=== PATIENT | male | born 1950 | race Caucasian/White ===

== ENCOUNTER 2018-02-15 21:56 | Observation (INO) ==
--- NOTE | 2018-02-15 22:06 | Emergency Department Note ---
Disposition Clinical Impression: Chest pain Qualifiers: Chest pain type: unspecified Qualified Code(s): R07.9 - Chest pain, unspecified Headache Qualifiers: Headache type: unspecified Headache chronicity pattern: acute headache Intractability: not intractable Qualified Code(s): R51 - Headache Disposition: Admitted As Inpatient Condition: Fair Time of Disposition: 00:00 General Adult HPI - General Stated complaint: chest pain, left side neck and shoulder pain jessica Time Seen by Provider: 02/15/18 22:04 Source: EMS Mode of arrival: EMS Limitations: no limitations Nursing Notes Reviewed: Yes Vital Signs Reviewed: Yes - History of Present Illness HPI Narrative: Patient is a 67-year-old male who presents to [facility] ED with a chief complaint of exertional chest pain and shortness of breath. States it has worsened over the last 4-5 days. States he also started having a pain that radiated up from his left neck into his head. States he does not normally get headaches. Denies any nausea, vomiting, fever or chills. Denies any abdominal pain, problems with urination or bowel movements. Past medical history significant for CAD with multiple stents. Patient last had a stress test at the [facility] back in October. States this feels similar to when he had his prior [place]. Onset (ago): day(s) (4) Location: head, neck, chest Pain Severity: moderate Quality: aching Consistency: intermittent Improves with: nothing Worsens with: nothing Associated symptoms: Reports: chest pain. Denies: fever/chills, headaches, nausea/vomiting, shortness of breath Treatments Prior to Arrival: none - Related Data Allergies Allergy/AdvReac Type Severity Reaction Status Date / Time No Known Allergies Allergy Verified 02/15/18 22:12 All systems ED: reviewed and negative except as stated. Past Medical History - Past Medical History Attestation: Yes The following information was validated with the patient. Source: patient Medical history: Reports: coronary artery disease Physical Exam - General Limitations: no limitations General appearance: alert - Head Head exam: atraumatic, normocephalic, normal inspection - Eye Eye exam: Present: EOMI - ENT ENT exam: normal exam, normal oropharynx, mucous membranes moist - Neck Neck exam: Present: normal inspection, full ROM, trachea midline - Chest Chest inspection: Present: normal inspection, symmetric chest wall rise - Respiratory Respiratory exam: Present: normal lung sounds bilaterally - Cardiovascular Cardiovascular exam: Present: regular rate, normal rhythm, normal heart sounds - Abdominal Exam Abdominal exam: Present: soft, Non-Tender. Absent: tenderness, distention, guarding, rebound, rigidity - Extremities Exam Extremities exam: Present: normal inspection, full ROM. Absent: tenderness, pedal edema - Back Exam Back exam: Present: normal inspection, full ROM. Absent: tenderness - Neurological Exam Neurological exam: Present: alert, oriented X3 - Psychiatric Psychiatric exam: Present: normal affect, normal mood - Skin Skin exam: Present: warm, dry, intact, normal color Course Course Narrative: Patient seen and examined. Exertional chest pain and dyspnea with a history of CAD. Cardiopulmonary workup initiated. Patient also having pain going from his neck into his head. is very concerned about this since he never has headaches. Decision was made to do a CTA of the head and neck to rule out dissection. He has had a history of CVAs as well. Patient is completely neurologically intact with an NIH of 0. I do not suspect a stroke at this time. - Reevaluation(s) Reevaluation #1: Lab work and imaging unremarkable. No signs of dissection on CTA. We will admit to hospitalist for chest pain, ACS workup. I discussed with the hospitalist Dr. Wetzel who has accepted patient for admission. We will give patient aspirin for chest pain, as well as Reglan and Benadryl to help with his headache. Time: 00:00 Vital Signs Temperature 97.8 F 02/15/18 22:03 Pulse Rate 64 02/15/18 22:03 Respiratory Rate 16 02/15/18 22:03 Blood Pressure 138/92 02/15/18 22:03 O2 Sat by Pulse Oximetry 95 02/15/18 22:03 Temperature 97.8 F 02/15/18 22:03 Pulse Rate 54 02/16/18 00:47 Respiratory Rate 18 02/16/18 00:47 Blood Pressure 126/80 02/16/18 00:47 O2 Sat by Pulse Oximetry 97 02/16/18 00:47 Oxygen Delivery Oxygen Delivery Room Air Medical Decision Making - Medical Records Medical records reviewed: Yes I reviewed the patient's medical records. - Lab Data Lab results reviewed: Yes I reviewed the patient's lab results. Result diagrams: 02/15/18 22:13 02/15/18 22:13 Lab Results 02/15/18 02/15/18 Range/Units 22:13 22:13 WBC 7.5 (4.3-11.1) K/mcL RBC 4.64 (4.19-5.50) M/mcL Hgb 14.5 (12.9-16.9) g/dL Hct 41.2 (37.5-50.1) % MCV 88.8 (83.0-100.0) fL MCH 31.3 (28.0-33.3) pg MCHC 35.2 (31.6-35.5) g/dL RDW 12.3 (11.5-14.5) % Plt Count 173 (140-400) K/mcL MPV 10.8 (9.4-12.4) fL Immature Gran % 0.4 (0-4) % Seg Neutrophils % 65.5 % Lymphocytes % 22.3 % Monocytes % 10.2 % Eosinophils % 1.3 % Basophils % 0.3 % Neutrophils # 4.9 (1.6-8.9) K/mcL Lymphocytes # 1.7 (0.6-4.6) K/mcL Monocytes # 0.8 (0.0-1.3) K/mcL Eosinophils # 0.1 (0.0-0.6) K/mcL Basophils # 0.0 (0.0-0.2) K/mcL Sodium 139 (136-145) mEq/L Potassium 3.8 (3.5-5.1) mEq/L Chloride 105 (98-107) mEq/L Carbon Dioxide 27 (23-29) mEq/L BUN 25 H (8-23) mg/dL Creatinine 1.02 (0.70-1.30) mg/dL Est GFR ( Amer) > 60 (> 60) Est GFR (Non-Af Amer) > 60 (> 60) BUN/Creatinine Ratio 25 (6-26) Glucose 161 H (70-105) mg/dL Calculated Osmolality 296 (280-300) Calcium 9.7 (8.6-10.3) mg/dL Troponin I < 0.03 (< 0.04) ng/mL - Radiology Data Radiology results reviewed: Yes I reviewed the patient's radiology results. Chest X-Ray 02/15/18 22:19 IMPRESSION: No acute process. D/ / Alan Patel MD / Alan Patel MD Interpreting Provider: Alan Patel MD Head CTA 02/15/18 22:22 IMPRESSION: No acute intracranial findings. Chronic small-vessel ischemic changes. No hemodynamically significant stenosis of either proximal internal carotid artery. Moderate stenosis right V4 segment vertebral artery. Mild stenosis of both cavernous segments internal carotid arteries. No high-grade intracranial stenosis. No dissection. D/ / Urban Espino MD / Urban Espino MD Interpreting Provider: Urban Espino MD Neck CTA 02/15/18 22:22 IMPRESSION: No acute intracranial findings. Chronic small-vessel ischemic changes. No hemodynamically significant stenosis of either proximal internal carotid artery. Moderate stenosis right V4 segment vertebral artery. Mild stenosis of both cavernous segments internal carotid arteries. No high-grade intracranial stenosis. No dissection. D/ / Urban Espino MD / Urban Espino MD Interpreting Provider: Urban Espino MD - EKG Data EKG #1 EKG attestation: Yes I reviewed and interpreted this EKG. EKG results narrative: EKG done at 2206 shows normal sinus rhythm with a rate of [address] elevation or depression. Normal axis. Attestation Statement - Attestation Attestation: I examined this patient and my medical decision-making was reviewed with the Resident Physician, Dr. Webber. I agree with the documented findings, disposition and treatment plan as described except to the extent set forth below. Patient is 67-year-old white male with a stable significant cardiac history including multiple stent placements in the past as well as 3 prior CVAs which she is completely recovered. Patient presents complaining of some exertional dyspnea and exertional chest discomfort that resolves with rest that he has been experiencing for the past week worse over the past 5 days. Patient states any ambulation causes a recurrence of symptoms. Patient denies any current chest pain at rest in the ED. Patient's also complaining of left-sided head and neck pain that he has been experiencing for the past few days denies any associated visual changes, no focal neurologic deficits, no slurred speech, no dizziness or vertigo, no history of falls or trauma. Patient has never experienced headaches like this in the past states that it will improve with Motrin but then recurs. was most concerned about the complaints of headaches. I agree with patient's physical exam findings as documented. Vital signs are stable patient's in no acute distress with no focal neurologic deficits. NIH score equals 0 on initial assessment. Patient's EKG showed a normal sinus rhythm without acute ischemia. There were no old EKGs for comparison in our system. Patient's last workup was done at the [facility] in October. Patient's lab evaluation including troponin was within normal limits chest x- rays unremarkable. CT of the head neck for further evaluation of headache and neck pain was unremarkable. Due to patient's exertional symptoms that are worsening as well as his headache findings we will admit him for further medical evaluation. Case was discussed with the hospitalist to accept the patient for further evaluation and management.
[2018-02-15] MEDS ORDERED: Isovue-370 500 ML INFUS..BTL IV ONE (22:22)
[2018-02-15 22:31] LABS: Basophils % 0.3 %; Eosinophils # 0.1 K/mcL (0.0-0.6); Eosinophils % 1.3 %; Hematocrit 41.2 % (37.5-50.1); Hemoglobin 14.5 g/dL (12.9-16.9); Immature Granulocytes % 0.4 % (0-4); Lymphocytes # 1.7 K/mcL (0.6-4.6); Lymphocytes % 22.3 %; Mean Corpuscular HGB Conc 35.2 g/dL (31.6-35.5); Mean Corpuscular Hemoglobin 31.3 pg (28.0-33.3); Mean Corpuscular Volume 88.8 fL (83.0-100.0); Mean Platelet Volume 10.8 fL (9.4-12.4); Monocytes # 0.8 K/mcL (0.0-1.3); Monocytes % 10.2 %; Neutrophils # 4.9 K/mcL (1.6-8.9); Platelet Count 173 K/mcL (140-400); Red Blood Count 4.64 M/mcL (4.19-5.50); Red Cell Distribution Width 12.3 % (11.5-14.5); Segmented Neutrophils % 65.5 %
[2018-02-15 22:52] LABS: BUN/Creatinine Ratio 25 (6-26); Blood Urea Nitrogen 25 mg/dL (8-23); Calcium 9.7 mg/dL (8.6-10.3); Carbon Dioxide 27 mEq/L (23-29); Chloride 105 mEq/L (98-107); Glucose 161 mg/dL (70-105); Osmolality,Calculated 296 (280-300); Potassium 3.8 mEq/L (3.5-5.1); Sodium 139 mEq/L (136-145); Troponin I < 0.03 ng/mL (< 0.04); eGFR For Non-African Americans > 60 (> 60)
[2018-02-16] MEDS ORDERED: Aspirin 325 MG TABLET PO ONE (01:06)
[2018-02-16] MEDS ORDERED: Metoclopramide 10 MG/2 ML VIAL IVP ONE (01:06)
[2018-02-16] MEDS ORDERED: Naloxone 0.4 MG/ML INJ IVP PRN (02:42)
[2018-02-16] MEDS ORDERED: Nitroglycerin 0.4 MG TAB.SUBL SL PRN (02:43)
--- NOTE | 2018-02-16 02:45 | Internal Med History&Physical ---
Date of Encounter: 02/16/18 Time of Encounter: 02:44 Internal Medicine - H&P: HPI Chief complaint: chest pain Admitted From: Emergency Dept Plans for Post Hospital Care: Home History of present illness: Mr. Gardner is a 67 year old male with past medical history of diabetes, CAD, CVA presents to emergency department with a complaint of chest pain. He states the pain began yesterday while he was walking up an incline. Pain has been intermittent and always occurs with exertion. He denies any history of chest pain at rest. He has experienced this before multiple times and has been worked up at the [facility] for chest pain. He denies any history of stents but has had a left heart catheterization many years ago. He also had a workup at the [facility] in October including stress test which he reports as normal. He states he does experience some shortness of breath during these episodes and with exertion but denies any complaints of nausea, diaphoresis. Denies any recent illness including fevers, chills, cough. He does state that one new issue is that his chest pain did radiate to his left neck and left shoulder. In the emergency department, vital signs were unremarkable except for mild bradycardia at 54. Laboratory results grossly unremarkable as well including a negative troponin. EKG showed sinus rhythm with no appreciable ST changes. A head and neck CTA was performed to rule out dissection given his new neck pain and was negative for acute study. He was given 324 mg of aspirin and admitted for chest pain rule out. Past medical history as above Past surgical history noncontributory Social history: Denies ever smoking, denies drug use, denies alcohol use Family history: Patient admits to coronary artery disease with [place] in his father in mid 50s. Past Med Surg Social Fam HX - Past Medical History Medical history: coronary artery disease Additional medical history: 2 CVA, 4 stents - Past Surgical History Additional surgical history: 2 rotor cuff surgeries - Social History Smoking Status: Never smoker Alcohol use: none Drug use: none - Family History Father Hx Family Cardiac Disorders: Yes Hx Family Cancer: Yes (lung) Hx Family Endocrine Disorder: Yes (DM) Mother Hx Family Cancer: Yes (lung) Internal Medicine - H&P: Meds Atorvastatin [Lipitor] 40 mg PO HS 02/16/18 [History] Clopidogrel Bisulfate [Plavix] 75 tab PO DAILY 02/16/18 [History] Finasteride [Proscar] 5 mg PO DAILY 02/16/18 [History] Insulin Glargine [Lantus] 25 unit SQ DAILY 02/16/18 [History] Latanoprost [Xalatan] 1 drop LEFT EYE HS 02/16/18 [History] Lisinopril-HCTZ 10-12.5 [Prinzide 10-12.5] 1 each PO DAILY 02/16/18 [History] Tamsulosin HCl [Flomax] 0.4 mg PO HS 02/16/18 [History] Timolol Maleate 0.5% [Timolol Maleate 0.5%] 1 drop LEFT EYE DAILY 02/16/18 [ History] glipiZIDE [Glipizide] 10 mg PO BID 02/16/18 [History] 3 Allergy/AdvReac Type Severity Reaction Status Date / Time No Known Allergies Allergy Verified 02/15/18 22:12 All Systems PM: A 10-system review of systems was performed and is negative for pertinent findings except as documented above in the HPI. - Constitutional Constitutional: no chills, no fatigue, no fever(s), no lethargy - Cardiovascular Cardiovascular ROS IM: chest pain, dyspnea on exertion, no claudication, no diaphoresis, no edema, no irregular heart rhythm, no orthopnea, no palpitations , no syncope - Respiratory Respiratory: dyspnea on exertion, no cough, no dyspnea, no pain on inspiration, no pain with cough - Gastrointestinal Gastrointestinal: no abdominal pain, no constipation, no hematemesis, no loose stools, no melena, no nausea, no vomiting - Integumentary Integumentary IM: no rash - Neurological Neurological ROS: no dizziness, no numbness, no tingling - Constitutional Vitals: Temp Pulse Resp BP Pulse Ox 97.7 F 59 18 120/71 97 02/16/18 01:47 02/16/18 01:47 02/16/18 01:47 02/16/18 01:47 02/16/18 01:47 Exam: Gen.: Vitals noted. No acute distress. AAOx3 HEENT: PERRL/EOMI, oropharynx clear, Normocephalic, atraumatic, MMM Cardiac: RRR, no murmur, +S1/S2. No reproducible chest tenderness Pulmonary: CTA bilaterally, no wheezes, rales or rhonchi, equal chest expansion Abdomen: soft, nontender, BS noted, no guarding, no rebound. Extremities: no BLE edema, nontender calf, no cyanosis or clubbing Neuro: A&Ox3, moves all extremities, no focal deficits Psych: Appropriate mood and behavior Internal Med - H&P Results - Labs CBC & Chem 7: 02/15/18 22:13 02/15/18 22:13 - Assessment and plan (1) Chest pain Current Visit: Yes Status: Suspected Assessment and plan: - Suspect stable angina given HPI - Previous workup in October at [facility] including stress test. LHC has been a couple years - Pain is resolved at this time. Received ASA in ED - Headache resolved. - Troponin negative x1, will trend - EKG shows no ischemic changes - Continue home ASA, plavix. - Heart score 5, IRENE 4 Plan - Consider long acting nitrate vs cardiac consult for [facility] - Will keep NPO at midnight - NTG SL PRN - Also consider BB however patient does run mildly bradycardic Qualifiers: Chest pain type: chest pain due to myocardial ischemia Ischemic chest pain type: stable angina pectoris Qualified Code(s): I20.8 - Other forms of angina pectoris (2) CAD (coronary artery disease) Current Visit: Yes Status: Chronic Assessment and plan: as above for chest pain. follows at [facility] Qualifiers: Coronary Disease-Associated Artery/Lesion type: [place] artery [place] vs. transplanted heart: [place] heart Associated angina: with stable angina Qualified Code(s): I25.118 - Atherosclerotic heart disease of [place] coronary artery with other forms of angina pectoris (3) Diabetes mellitus Current Visit: Yes Status: Acute Assessment and plan: - Bs of 161 on presentation - Not insulin dependent - SSI, a1c with morning labs Qualifiers: Diabetes mellitus type: type 2 Diabetes mellitus assisted insulin use: without moth exterminator use Diabetes mellitus complication status: without complication Qualified Code(s): E11.9 - Type 2 diabetes mellitus without complications (4) Headache Current Visit: Yes Status: Resolved Assessment and plan: resolved, possibly tension related - Received reglan, benadryl, asa before leaving ED - Caution with NTG in future. Qualifiers: Headache type: unspecified Headache chronicity pattern: acute headache Intractability: not intractable Qualified Code(s): R51 - Headache (5) DVT prophylaxis Current Visit: Yes Status: Acute Assessment and plan: heparin 5000 units q12 hours - Time Spent With Patient Total time spent is greater than 50% in coordination of care (as documented) at patient's floor/unit and/or counseling patient:
[2018-02-16] MEDS ORDERED: *HR* Dextrose 50 % in Water (Syg) 50 ML SYRINGE IVP PRN (02:46)
[2018-02-16] MEDS ORDERED: D5% in Water 1,000 ML IVC PRN (02:46)
[2018-02-16] MEDS ORDERED: Dextrose Gel 15 GM/37.5 ML TUBE PO PRN ×2 (02:46)
[2018-02-16] MEDS ORDERED: *HR* Heparin 5,000 UNIT/ML VIAL SQ SCH (06:00)
[2018-02-16] MEDS: Insulin LISPRO 300 UNITS/3 ML VIAL SQ SCH ×3 (08:37→18:08)
[2018-02-16] MEDS: Finasteride 5 MG TABLET PO SCH (08:39)
[2018-02-16] MEDS ORDERED: *HR* Heparin 5,000 UNIT/ML VIAL IVP ONE (10:21)
[2018-02-16] MEDS ORDERED: *HR* Heparin 5,000 UNIT/ML VIAL IVP PRN ×2 (10:21)
--- NOTE | 2018-02-16 10:28 | Internal Med Progress Note ---
Hospitalist Progress Note - Encounter Date of Encounter: 02/16/18 Time of Encounter: 10:25 - Subjective Interval History: Patient was seen and examined earlier this am by hospitalist He has been NPO overnight, no CP voiced at this time. Troponin have been negative. He has h of 4 stents in past last cardiac cath several years ago, stress test completed at [facility] in October which was negative. I did consult cardiology and spoke with Dr Alatorre who advised to start heparin gtt and patient will undergo a cardiac cath this afternoon. Updated patient and who verbalized understanding. - Exam Vitals: Temp Pulse Resp BP Pulse Ox 98.2 F 66 18 109/66 98 02/16/18 07:48 02/16/18 07:48 02/16/18 07:48 02/16/18 07:48 02/16/18 08:47 - Assessment and Plan (1) Chest pain Current Visit: Yes Status: Suspected (2) Headache Current Visit: Yes Status: Resolved (3) DVT prophylaxis Current Visit: Yes Status: Acute (4) CAD (coronary artery disease) Current Visit: Yes Status: Chronic (5) Diabetes mellitus Current Visit: Yes Status: Acute - Time Spent with Patient Total time spent is greater than 50% in coordination of care (as documented) at patient's floor/unit and/or counseling patient: Internal Medicine: Result - Labs CBC & Chem 7: 02/15/18 22:13 02/15/18 22:13 Labs: Cardiac Enzymes 02/16/18 Range/Units 08:45 Troponin I < 0.03 (< 0.04) ng/mL Consult Discharge Plan - Plan (1) Chest pain Qualifiers: Chest pain type: chest pain due to myocardial ischemia Ischemic chest pain type: stable angina pectoris Qualified Code(s): I20.8 - Other forms of angina pectoris (2) Headache Qualifiers: Headache type: unspecified Headache chronicity pattern: acute headache Intractability: not intractable Qualified Code(s): R51 - Headache (4) CAD (coronary artery disease) Qualifiers: Coronary Disease-Associated Artery/Lesion type: [place] artery [place] vs. transplanted heart: [place] heart Associated angina: with stable angina Qualified Code(s): I25.118 - Atherosclerotic heart disease of [place] coronary artery with other forms of angina pectoris (5) Diabetes mellitus Qualifiers: Diabetes mellitus type: type 2 Diabetes mellitus mcc insulin use: without oysterman use Diabetes mellitus complication status: without complication Qualified Code(s): E11.9 - Type 2 diabetes mellitus without complications
[2018-02-16] MEDS ORDERED: Heparin 25,000 UNIT/500 ML D5W 25,000 UNIT/500 ML BAG IVC SCH (10:30)
--- NOTE | 2018-02-16 10:36 | Event Note ---
Date of Encounter: 02/16/18 Time of Encounter: 10:30 Patient was seen and examined earlier this am by hospitalist He has been NPO overnight, no CP voiced at this time. Troponin have been negative. He has h of 4 stents in past last cardiac cath several years ago, stress test completed at [facility] in October which was negative. I did consult cardiology and spoke with Dr Alatorre who advised to start heparin gtt and patient will undergo a cardiac cath this afternoon. Updated patient and who verbalized understanding.
[2018-02-16 10:53] LABS: Hematocrit 44.3 % (37.5-50.1); Hemoglobin 15.3 g/dL (12.9-16.9); Heparin anti-factor XA UFH 0.01 IU/mL (0.30-0.70); Mean Corpuscular HGB Conc 34.5 g/dL (31.6-35.5); Mean Corpuscular Hemoglobin 30.7 pg (28.0-33.3); Mean Corpuscular Volume 88.8 fL (83.0-100.0); Mean Platelet Volume 10.6 fL (9.4-12.4); Platelet Count 176 K/mcL (140-400); Red Blood Count 4.99 M/mcL (4.19-5.50); Red Cell Distribution Width 12.4 % (11.5-14.5)
--- NOTE | 2018-02-16 11:06 | Cardiology Consult Note ---
<Asher Ardon R - Last Filed: 02/16/18 11:11> Date of Encounter: 02/16/18 Time of Encounter: 11:03 Assessment and Plan (1) Angina of effort Status: Acute Presents with exertional chest pain over the past week, midsternal with radiation to left shoulder/neck associated with dyspnea. Relieved with rest. Similar to his prior anginal equivalent--CAD s/p 4 stents, most recent PCI 2009 per pt. Reports negative stress test at [place] in October. Troponins negative. EKG no acute changes. Given his anginal symptoms and recent negative stress test, recommend LHC. R/B/ A discussed. Pt agrees to proceed. LHC today. Dr. Alatorre recommended starting heparin gtt. Continue Plavix, Statin. Start ASA. Resume home BB. TTE to evaluate structure and function. Continue to follow. (2) CAD (coronary artery disease) Status: Chronic As above, hx PCI most recent 2009. ASA, Plavix, Statin, BB. LHC today for anginal symptoms. Qualifiers: Coronary Disease-Associated Artery/Lesion type: [place] artery [place] vs. transplanted heart: [place] heart Associated angina: with stable angina Qualified Code(s): I25.118 - Atherosclerotic heart disease of [place] coronary artery with other forms of angina pectoris Discussion w patient/family: The assessment and plan as outlined above was discussed with the patient and/or family members who expressed understanding and agreement. All questions were answered. Thank you for involving us in the care of your patient. Please call with any questions. I will discuss all the above with Dr. Alatorre and make changes as necessary. History of Present Illness Consult date: 02/16/18 Requesting physician: Afshan Silva Consult reason: angina Chief complaint: chest pain History of present illness: Mr. Gardner is a 67 year old male with PMH of diabetes, CAD s/p PCI, CVA presents to ED with complaint of chest pain intermittently for the past week when trying to walk up an incline. CP worsens on exertion, relief with rest. Associated dyspnea and radiation to left shoulder/neck. He has not utilized nitro. Most recent LHC with PCI was in 2009. He states he has a total of 4 stents and current symptoms are similar to his prior anginal equivalent. Reports negative stress test at [place] in October. Troponin negative. Cardiology consulted for further recs. Past Med Surg Social Fam HX - Past Medical History Medical history: coronary artery disease, CVA, diabetes Additional medical history: 2 CVA, 4 stents - Past Surgical History Surgical History: angioplasty/stent Additional surgical history: 2 rotor cuff surgeries - Social History Smoking Status: Never smoker Alcohol use: none Drug use: none - Family History Father Hx Family Cardiac Disorders: Yes Hx Family Cancer: Yes (lung) Hx Family Endocrine Disorder: Yes (DM) Mother Hx Family Cancer: Yes (lung) Medications and Allergies Atorvastatin [Lipitor] 40 mg PO HS 02/16/18 [History] Carvedilol 3.125 mg PO BID 02/16/18 [History] Cetirizine HCl [Zyrtec] 10 mg PO DAILY 02/16/18 [History] Clopidogrel Bisulfate [Plavix] 75 tab PO DAILY 02/16/18 [History] Diclofenac Sodium [Voltaren] 2 gm TP TID PRN 02/16/18 [History] Finasteride [Proscar] 5 mg PO DAILY 02/16/18 [History] Insulin Glargine [Lantus] 25 unit SQ DAILY 02/16/18 [History] Latanoprost [Xalatan] 1 drop LEFT EYE HS 02/16/18 [History] Lisinopril-HCTZ 10-12.5 [Prinzide 10-12.5] 1 each PO DAILY 02/16/18 [History] Pantoprazole Sodium [Protonix] 40 mg PO DAILY 02/16/18 [History] Tamsulosin HCl [Flomax] 0.4 mg PO HS 02/16/18 [History] Timolol Maleate 0.5% 1 drop LEFT EYE DAILY 02/16/18 [History] Zolpidem [Ambien] 10 mg PO HS 02/16/18 [History] glipiZIDE [Glipizide] 10 mg PO BID 02/16/18 [History] Aspirin 81 mg PO DAILY #30 tab.chew 02/17/18 [Rx] Nitroglycerin 0.4 mg SL Q5MIN PRN #30 tab.subl 02/17/18 [Rx] 3 Allergy/AdvReac Type Severity Reaction Status Date / Time carvedilol AdvReac Fatigued Verified 02/16/18 17:50 All Systems Review: The remainder of the systems were reviewed and are negative - Cardiovascular Cardiovascular: as per HPI, chest pain with exertion, dyspnea on exertion, radiating jaw, neck or arm pain - Respiratory Respiratory: dyspnea Physical Examination Vital Signs, Last 4 Hours Temp Pulse Resp BP Pulse Ox 02/16/18 08:47 98 02/16/18 07:48 98.2 F 66 18 109/66 98 Vital Signs Temp Pulse Resp BP Pulse Ox 02/16/18 08:47 98 02/16/18 07:48 98.2 F 66 18 109/66 98 02/16/18 01:47 97.7 F 59 18 120/71 97 02/16/18 00:47 54 18 126/80 97 02/15/18 23:12 56 14 131/85 97 02/15/18 22:03 97.8 F 64 16 138/92 95 Intake and Output 02/15/18 02/16/18 02/16/18 23:59 07:59 15:59 Other: Meal NPO Weight 80.739 kg 85.2 kg Blood Glucose* 86 Patient Weight 02/16/18 23:59 Weight 85.2 kg General: Conversant, No Apparent Distress HEENT: Atraumatic, Normocephaly, Mucus Membranes Moist Neck: No JVD, Normal carotid pulses Cardiac: Reg Rate and Rhythm, Normal S1 and S2, No Murmur Lungs: Normal Breath Sounds, No Wheeze, Rales, Rhonchi Neuro: Alert and responsive, No focal deficits noted Abdomen: Soft, Non-Tender Skin: No rashes noted on visualized skin Musculoskeletal: No Chest Wall Tenderness Extremities: No Clubbing, No Cyanosis, No Edema, Normal Pulses Results 02/16/18 10:31 02/15/18 22:13 Lab Results 02/16/18 02/16/18 02/16/18 08:45 10:31 10:31 WBC 7.9 Hgb 15.3 Hct 44.3 Plt Count 176 INR 1.0 Troponin I < 0.03 Short CBC 02/16/18 02/15/18 Range/Units 10:31 22:13 WBC 7.9 7.5 (4.3-11.1) K/mcL Hgb 15.3 14.5 (12.9-16.9) g/dL Hct 44.3 41.2 (37.5-50.1) % Plt Count 176 173 (140-400) K/mcL Neutrophils # 4.9 (1.6-8.9) K/mcL BMP 02/15/18 Range/Units 22:13 Sodium 139 (136-145) mEq/L Potassium 3.8 (3.5-5.1) mEq/L Chloride 105 (98-107) mEq/L Carbon Dioxide 27 (23-29) mEq/L BUN 25 H (8-23) mg/dL Creatinine 1.02 (0.70-1.30) mg/dL Glucose 161 H (70-105) mg/dL Calcium 9.7 (8.6-10.3) mg/dL Cardiac Enzymes 02/16/18 02/15/18 Range/Units 08:45 22:13 Troponin I < 0.03 < 0.03 (< 0.04) ng/mL Impressions Chest X-Ray 02/15/18 22:19 IMPRESSION: No acute process. D/ / Alan Patel MD / Alan Patel MD Interpreting Provider: Alan Patel MD Head CTA 02/15/18 22:22 IMPRESSION: No acute intracranial findings. Chronic small-vessel ischemic changes. No hemodynamically significant stenosis of either proximal internal carotid artery. Moderate stenosis right V4 segment vertebral artery. Mild stenosis of both cavernous segments internal carotid arteries. No high-grade intracranial stenosis. No dissection. D/ / Urban Espino MD / Urban Espino MD Interpreting Provider: Urban Espino MD Neck CTA 02/15/18 22:22 IMPRESSION: No acute intracranial findings. Chronic small-vessel ischemic changes. No hemodynamically significant stenosis of either proximal internal carotid artery. Moderate stenosis right V4 segment vertebral artery. Mild stenosis of both cavernous segments internal carotid arteries. No high-grade intracranial stenosis. No dissection. D/ / Urban Espino MD / Urban Espino MD Interpreting Provider: Urban Espino MD Active Medications Acetaminophen (Tylenol) 650 mg PO Q6HR PRN PRN Reason: Mild Pain/Fever Stop: 08/18/18 02:43 Atorvastatin Calcium (Lipitor) 40 mg PO HS SID Stop: 08/18/18 21:01 Clopidogrel Bisulfate (Plavix) 75 mg PO DAILY SID Stop: 08/18/18 09:01 Last Admin: 02/16/18 08:39 Dose: 75 mg Dextrose/Water (Dextrose 50% (Syg)) 25 ml IVP AD PRN PRN Reason: Hypoglycemia Stop: 08/18/18 02:47 Finasteride (Proscar) 5 mg PO DAILY SID PRN Reason: Protocol Stop: 08/18/18 09:01 Last Admin: 02/16/18 08:39 Dose: 5 mg Glucagon (Glucagen) 1 mg IM ONCE PRN PRN Reason: Hypoglycemia Stop: 08/18/18 02:47 Glucose (Gluctose) 15 gm PO ONCE PRN PRN Reason: Hypoglycemia Stop: 08/18/18 02:47 Glucose (Gluctose) 30 gm PO ONCE PRN PRN Reason: Hypoglycemia Stop: 08/18/18 02:47 Lisinopril/HCTZ (Prinzide 10-12.5) 1 each PO DAILY [facility] Stop: 08/18/18 09:01 Last Admin: 02/16/18 08:39 Dose: 1 each Heparin Sodium (Porcine) (Heparin) 4,000 unit IVP Q6HR PRN PRN Reason: SEE COMMENTS Stop: 08/18/18 10:22 Heparin Sodium (Porcine) (Heparin) 2,000 unit IVP Q6H PRN PRN Reason: SEE COMMENTS Stop: 08/18/18 10:22 Dextrose (Dextrose 5%) 1,000 mls @ 100 mls/hr IVC .Q10H PRN PRN Reason: HYPOGLYCEMIA Stop: 08/18/18 02:47 Heparin Sodium/Dextrose (Heparin 25,000 Unit/500 Ml D5w) 25,000 unit in 500 mls @ 20 mls/hr IVC .Q24H SID PRN Reason: Protocol Stop: 08/18/18 10:31 Insulin Human Lispro (Humalog) 0 units SQ TIDAC SID PRN Reason: Protocol Stop: 08/18/18 07:31 Last Admin: 02/16/18 08:37 Dose: Not Given Latanoprost (Xalatan) 1 drop LEFT EYE HS SID PRN Reason: Protocol Stop: 08/18/18 21:01 Naloxone HCl (Narcan) 0.4 mg IVP Q2MIN PRN PRN Reason: SEE COMMENTS Stop: 08/18/18 02:43 Nitroglycerin (Nitroglycerin) 0.4 mg SL Q5MIN PRN PRN Reason: Chest Pain Stop: 08/18/18 02:44 Tamsulosin HCl (Flomax) 0.4 mg PO HS SID PRN Reason: Protocol Stop: 08/18/18 21:01 Timolol Maleate (Timolol Maleate 0.5%) 1 drop LEFT EYE DAILY SID PRN Reason: Protocol Stop: 08/18/18 09:01 - EKG Interpretation EKG results cardiology: personally reviewed Consult Discharge Plan - Plan Instructions: Nitroglycerin (By mouth), Aspirin (By mouth), Chest Pain (DC), Diabetes Mellitus Type 2 in Adults (DC) Additional Instructions: RISK FACTORS: STOP SMOKING: If you smoke, STOP. Smoking or tobacco use significantly increases your risk of heart disease because nicotine causes the arteries to narrow or constrict. It also causes fats to stick to the artery. Your chances of having a heart attack are greatly increased if you continue to smoke. For more information, call the education line for smoking cessation 4-725-[id number] EAT A LOW FAT/CHOLESTEROL/SODIUM DIET: This diet may help reduce your chances of having a heart attack. LIFTING: With affected extremity: Avoid bending, pushing off and lifting more than 2 pounds for 24 hours The following 48 hours, avoid lifting anything more than 5 pounds Avoid strenuous activity or repetitive motions ACTIVITY: You may walk or climb stairs as tolerated You can resume sexual activity as tolerated In general, you are encouraged to engage in a minimum of 30 minutes or more of moderate intensity physical activity, such as brisk walking, daily or at least 3 -4 times weekly BATHING Do not submerge the site into water (bath tub, hot tub, swimming pool, dishes) for 1 week. This can be a source for infection into the blood stream. You may shower after 24 hours SITE CARE: After 24 hours, you may remove the dressing and leave the site open to air. Keep the site clean and dry. Clean gently and pat dry. You can expect bruising and tenderness that gradually resolve within a week or two. Return to work as instructed per your physician Resume driving as instructed per physician Keep all scheduled follow up appointments Resume medications as instructed IMPORTANT: If prescribed a Platelet Aggregation Inhibitor such as, Plavix, Brilinta or Effient: Duration of therapy is minimum one year These medications are often used in combination with Aspirin in prevention of future heart attacks Never discontinue unless consult with your [employer] STROKE (CVA) Risk factors for a stroke are: Age, cigarette smoking, diabetes, excessive alcohol consumption, family history, high blood pressure, overweight, physical inactivity, prior stroke, heart attack, diagnosis of carotid artery stenosis or other artery disease. Warning signs: Sudden numbness or weakness of the face, arm or leg; especially on one side of the body, sudden confusion, trouble speaking or understanding, sudden trouble seeing in one or both eyes, sudden trouble walking, dizziness, loss of balance or coordination, sudden severe headache with no cause. Call 911 or go to the Emergency Room. CONGESTIVE HEART FAILURE: If you have been diagnosed with Congestive Heart Failure (CHF) and your symptoms return, make an appointment with your physician Weigh yourself daily. Notify your physician if you have a weight gain of two or more pounds in one day or five or more pounds in one week. If you experience any difficulty breathing, please call 911 BLEEDING: Although the risk of bleeding is minimal, it can happen. If you have any bleeding from the site, apply firm pressure above the puncture site for 10-15 minutes. If the bleeding does not stop, continue manual pressure and call 911 Contact [facility] ( ) if: You develop a fever greater than 101 degrees Fahrenheit Your site becomes reddened or has any drainage You have an increase in pain or burning at the site or if a large knot forms at the site. If you experience chest pain, shortness of breath, dizziness, or extreme tiredness, stop the activity and rest. Please notify [facility] office if you experience any of these symptoms and they are not relieved by rest please call 911! Referrals: Checo Martinez MD [Partnered Physician] - [place],PCP [Primary Care Provider] - 03/04/18 9:45 am Prescriptions: Nitroglycerin 0.4 mg SL Q5MIN PRN #30 tab.subl PRN Reason: Chest Pain Aspirin 81 mg PO DAILY #30 tab.chew <Colin Alatorre - Last Filed: 02/17/18 14:25> Date of Encounter: 02/16/18 - Attending Attestation I have personally performed a face to face evaluation on this patient. I have reviewed and agree with the care plan. History and Exam by me shows: CC: Chest pain PT presents to the ER with complaints of sudden onset mid sternal chest pain, severe 8/10, provoked by increased exercise and walking up an incline. Pain lasts three to five minutes after stops to rest. He reports chest pain is associated with nausea, diaphoresis and shortness of breath, and is similar to chest pain experienced prior to previous PCI in 2009. He has been having symptoms on and off for several weeks. Chest pain at presentation most severe he has experienced, and lasted the longest. PMH: reviewed ROS: reviewed PE: pt seen and examined, agree with findings as documented. IMP:Plan: 1. Unstable angina, discussed options, recommendation for LHC possible later today, risk and benefits discussed, elects to proceed with diagnostic LHC. 2. CAD: Severe single vessel CAD POst PCI with SHELLIE unknown vessel in 2009, old records requested. 3. IDDM: reports fasting blood sugars are well controlled on current meds. 4. Hypertension: adequate control on current meds. Assessment and Plan Discussion w patient/family: The assessment and plan as outlined above was discussed with the patient and/or family members who expressed understanding and agreement. All questions were answered. Thank you for involving us in the care of your patient. Please call with any questions. History of Present Illness History of present illness: Mr. Gardner is a 67 year old male All Systems Review: The remainder of the systems were reviewed and are negative Physical Examination Vital Signs, Last 4 Hours Temp Pulse Resp BP Pulse Ox 02/17/18 11:23 97.7 F 97 18 131/73 97 Results 02/16/18 10:31 02/15/18 22:13
[2018-02-16] MEDS: Aspirin 81 MG TAB.CHEW PO SCH (11:48)
--- NOTE | 2018-02-16 13:28 | Pre-Sedation Evaluation ---
Pre-sedation evaluation - Pre-sedation checklist Date of procedure: 02/16/18 Procedure: [facility] Recent Vitals: Last Vital Signs Temp 97.9 F 02/16/18 11:24 Pulse 68 02/16/18 11:24 Resp 16 02/16/18 11:24 BP 129/86 02/16/18 11:24 Pulse Ox 97 02/16/18 11:24 H&P (including ROS) documented in medical record: Yes Previous reaction to sedatives/anesthetics: No Dietary Status: NPO after Midnight Airway Assessment: Patient can open mouth completely, TMJ function normal ASA Classification *see protocol: CLASS II-Mild systemic disease Plan of Care: Pt appropriate candidate for procedure/moderate/conscious sedation , Risks/benefits of procedure/sedation discussed w/ patient/family Cardiac Registry (Cardio Only) - Functional Capacity Functional Capacity: >=4 METS with symptoms - Clincal Frailty Scale Clinical Frailty Scale: Managing Well
[2018-02-16] MEDS ORDERED: *HR* Heparin 10,000 UNIT/10 ML VIAL ONE (14:52)
[2018-02-16] MEDS ORDERED: 0.9 % Sodium Chloride 1,000 ML ONE ×2 (14:52→15:03)
[2018-02-16] MEDS ORDERED: Verapamil 5 MG/2 ML VIAL ONE (14:52)
[2018-02-16] MEDS ORDERED: Nitroglycerin 1,000 MCG/10 ML VIAL IV ONE (14:52)
[2018-02-16] MEDS ORDERED: ISOVUE-370 200 ML INFUS..BTL IV ONE ×2 (14:52→15:23)
[2018-02-16] MEDS ORDERED: Heparin 1,000 UNITS/500 mL 500 ML ONE (14:52)
[2018-02-16] MEDS ORDERED: *HR* FentaNYL (PF) 100 MCG/2 ML VIAL ONE (15:07)
[2018-02-16] MEDS ORDERED: *HR* Midazolam HCl 5 MG/5 ML VIAL IVP ONE (15:08)
[2018-02-16] MEDS ORDERED: Tirofiban 12.5 MG/250ML 12.5 MG/250 ML BAG ONE (15:23)
--- NOTE | 2018-02-16 16:06 | Invasive Diagnostic Lab Proc ---
Name: Link Gardner Date of Study: 02/16/2018 Date: 1950 Ht: 68.1in Medical Record#: [id number] Age: 67 Wt: 187.39lb Gender: Male BSA: 1.99 Order #: [id number] BMI: 28.4 Physicians Procedure Physician: Checo Martinez MD, FACC Referring MD: Referring MD: Staff Name Position Time In Lindsay Salinas RN Monitor 03:03 PM Mary Carroll RN Fabrics And Material Cutter 03:03 PM Lucie Jackson RT (R) Scrub 03:03 PM Indications Indication Unstable Angina Procedures Performed Procedure L HRT ARTERY/VENTRICLE ANGIO PRQ CARDIAC ANGIOPLAST 1 ART PRQ CARDIAC ANGIO ADDL ART Pre-Procedure Checklist Informed consent is complete signed and on chart. H&P is on chart. ID band is on and ID verified with patient. Patient NPO for procedure The procedure was described for the patient and questions were answered. ECG is on chart. Plan of Care Patient will tolerate the procedure without complications. Adequate level of comfort will be maintained. Hemodynamics will remain stable Patient will recover from procedure without complications. Respiratory function will be maintained. Cardiac rhythm will remain stable. Patient temperature will be maintained. Patient and/or family have verbalized understanding of the procedure. Patient Education Chief Complaint/Reason for Test: Cardiac Cath Developmental Category: Adult (18-64 years) Developmentally Appropriate for Age: Yes Learning Barriers: None Education Needs: Procedure Education Method: Verbal Information Taught: Cardiac Cath Educational Evaluation: Able to repeat information Intravenous Access Time IV Size Location DC'd Fluid/Drip Rate Units RN 02:32 PM 20g 1 07/10" Patent On Arrival Rt Antecubital Allergies No Known Allergies Vital Signs Time BP (mmHg) HR (bpm) O2 Sat. RR (bpm) LOC 03:11 PM / % 5 = Fully awake and oriented or at pre-proc level 03:11 PM / % 4 = Oriented but drowsy 03:26 PM / % 5 = Fully awake and oriented or at pre-proc level 03:46 PM 116 / 69 57 92 % 11 03:51 PM 111 / 70 58 93 % 14 03:06 PM 131 / 86 61 99 % 14 03:11 PM 128 / 83 65 99 % 27 03:16 PM 105 / 68 62 94 % 13 03:21 PM 112 / 70 55 90 % 9 03:26 PM 114 / 69 55 92 % 9 03:31 PM 118 / 58 55 92 % 8 03:36 PM 113 / 70 56 94 % 9 03:41 PM 107 / 64 57 95 % 14 03:41 PM / % 4 = Oriented but drowsy Procedural Medications Time Medication Dose Units Method Given By 03:07 PM 0.9NaCl 25 ml/hr Intravenous Mary Carroll RN 03:08 PM Oxygen 2 L/min nasal cannula Mary Carroll RN 03:11 PM Versed 2 mg Intravenous Mary Carroll RN 03:11 PM Fentanyl 50 mcg Intravenous Mary Carroll RN 03:13 PM Lidocaine 2% 0.5 ml Subcutaneous Checo Martinez MD, FACC 03:13 PM Versed 1 mg Intravenous Mary Carroll RN 03:13 PM Fentanyl 25 mcg Intravenous Mary Carroll RN 03:15 PM Heparin 4000 units Nitroglycerin 200 mcg Verapamil 2.5 mg Intraarterial Checo Martinez MD, FACC 03:19 PM Oxygen 4 L/min nasal cannula Mary Carroll RN 03:29 PM Heparin 2000 units Intravenous Mary Carroll RN 03:40 PM Nitroglycerin 200 mcg Intracoronary Checo Martinez MD 03:54 PM Plavix 75 mg Orally Mary Carroll RN ASA Classification: CLASS II- Mild systemic disease (i.e. well-controlled diabetes, hypertension, asthma, cigarette smoking) Yasmeen Score Preprocedure Postprocedure Activity 2- Moves 4 extremities sustained head lift Activity 2- Moves 4 extremities sustained head lift Circulation 2- SBP +/= 20 points of pre-anesthetic level Circulation 2- SBP +/= 20 points of pre-anesthetic level Consciousness 2- Awake and alert oriented x 3 Consciousness 2- Awake and alert oriented x 3 O2 Saturation 2- Able to maintain O2 satruation of 92% on room air O2 Saturation 2- Able to maintain O2 satruation of 92% on room air Respiratory 2- Able to deep breathe and cough well Respiratory 2- Able to deep breathe and cough well Total Score 10 Total Score 10 Contrast Agent: Isovue Diagnostic Contrast: 125 ml Total Contrast: 125 ml Fluoro Dose: 4379 mGy Activated Clotting Time Time Seconds to Clot 03:28 PM 212 Procedure Log Time Note Enter By 03:02 PM Pt arrived to [employer] 2 at 15:02 mateo 03:03 PM Soummers, Lindsay RN Position: Monitor Time in: 15:mm 03:03 PM Mary Carroll RN Position: Fabrics [employer] Material Cutter Time in: 15:mm 03:04 PM Lucie Jackson RT (R) Position: Scrub Time in: 15:oummers 03:04 PM Case Delayed No [email or web address] 03:04 PM Physician arrived 15:mm 03:04 PM Meet and greet completed 03:04 PM Sign in performed according to hospital policy. oumm 03:05 PM CathStat 03:05 PM Case Start 03:05 PM Vitals capture started with the following parameters, Patient=Adult, Interval=5 min, Initial Xhmqzurb=702 mmHg, Deflation Rate=5 mmHg, Cuff placed on Right Arm 03:05 PM Hair removed from procedure site in procedure lab using clippers. Right wrist prepped with Chloraprep by Sue Diaz (R), then patient was draped. Skin intact. mm 03:06 PM HR=61 bpm, JUMS=655/86 mmhg, SpO2=99.0 %, Resp=14 B/min, Comment=NSR 03:06 PM Hair removed from procedure site in holding area using clippers. Right groin prepped with Chloraprep by Sue Diaz (R), then patient was draped. Skin intact. oumm 03:07 PM ASA Class CLASS II- Mild systemic disease (i.e. well-controlled diabetes, hypertension, asthma, cigarette smoking) [email or web address] 03:07 PM Procedure start 15:oumm 03:07 PM Time: 15:07 0.9NaCl 25 ml/hr Intravenous Given by Mary Carroll RN mando 03:08 PM Patient charges- Angio tray pack, Navilyst 3mm J, Pulse Oximetry and ACIST tubing and transducer [email or web address] 03:08 PM Time: 15:08 Oxygen on at 2 L/min per nasal cannula by Mary Carroll RN mando 03:11 PM Time: 15:11 Patient comfortable and pain free: Yes oumm 03:11 PM Time: 15:11LOC: 5 = Fully awake and oriented or at pre-proc level [email or web address] 03:11 PM Time: 15:11 Versed 2 mg Intravenous Given by Mary Carroll RN mando 03:11 PM HR=65 bpm, YTPK=626/83 mmhg, SpO2=99.0 %, Resp=27 B/min, EtCO2=36 mmHg, Comment=NSR 03:11 PM Time: 15:11 Fentanyl 50 mcg Intravenous Given by Mary Carroll RN gordyalecia 03:12 PM Clinical Presentation: Unstable angina mm 03:12 PM Pressure channel 1 zeroed. 03:13 PM Time out performed according to hospital policy 03:13 PM Time: 15:13 0.5 ml Lidocaine 2% to right radial Subcutaneous Given by Checo Martinez MD, [facility] mmalecia 03:13 PM Time: 15:13 Versed 1 mg Intravenous Given by Mary Carroll RN mando 03:13 PM Time: 15:13 Fentanyl 25 mcg Intravenous Given by Mary Carroll RN 03:14 PM Recorded ECG: HR=59 Condition=Condition 1 03:15 PM Access obtained by percutaneous puncture. 6Fr 10cm Terumo Glidesheath sheath placed in right Femoral artery. [id number] [facility] 03:15 PM Time: 15:15 Patient given 4,000 units Heparin, 200 mcg Nitroglycerin, and 2.5 mg Verapamil Intraarterial by Checo Martinez MD, [facility]. This is given to reduce risk of vessel spasm and thrombosis. mm 03:15 PM 0.035 260cm Navilyst 3mmJ wire [id number] 03:15 PM 5Fr TIG catheter inserted over the wire [facility] 03:15 PM wire removed 03:16 PM HR=62 bpm, ODPS=472/68 mmhg, SpO2=94.0 %, Resp=13 B/min, Comment=NSR 03:16 PM 0.035 150cm VSI Musa-Torque wire [id number] 03:17 PM wire removed 03:17 PM Recorded Pressure: Ao, HR=63, Condition=Condition 1 (Aorta) Ao 93/72/83 03:18 PM LCA angiography performed in multiple views. 03:18 PM Lesion found in 1st Marginal. Pre Stenosis: 90 Pre IRENE Flow: 3: Complete and Brisk Flow/Perfusion tsoummers 03:18 PM RCA angiography performed in multiple views. tsoummers 03:19 PM Recorded Pressure: Ao, HR=60, Condition=Condition 1 (Aorta) Ao 99/73/85 03:19 PM Time: 15:19 Oxygen on at 4 L/min per nasal cannula by Mary Carroll RN tsoummers 03:19 PM Coronary Dominance: Left tsoummers 03:20 PM Lesion found in Proximal RCA. Pre Stenosis: 95 Pre IRENE Flow: tsoummers 03:20 PM Right Coronary, Right Posterior Descending Arteries with Right Posterolateral and Acute Marginal branches with 95 % stenosis. If graft is supplying this area, 0 % stenosis tsoummers 03:20 PM Catheter removed tsoummers 03:20 PM 5Fr Pigtail catheter inserted over the wire DNC tsoummers 03:20 PM Circumflex, Obtuse Marginal, Left Posterior Descending, and Left Posterolateral Coronary Arteries with 90 % stenosis. If graft is supplying this area, 0 % stenosis tsoummers 03:20 PM Catheter selectively placed in left ventricle tsoummers 03:21 PM Lesion found in Proximal LAD. Pre Stenosis: 50 Pre IRENE Flow: tsoummers 03:21 PM Proximal Left Anterior Descending Coronary Artery with 50% stenosis. If graft is supplying this territory, 0 % stenosis. tsoummers 03:21 PM HR=55 bpm, IFKO=541/70 mmhg, SpO2=90.0 %, Resp=9 B/min, Comment=SB 03:21 PM Pressure channel 1 zeroed. 03:21 PM Recorded Pressure: LV, HR=57, Condition=Condition 1 (Left Ventricle) LV 110/11/17 03:22 PM Recorded Pressure: LV, Ao, HR=64, Condition=Condition 1 (Left Ventricle) LV 108/13/16, (Aorta) Ao 105/44/77 03:22 PM no injection, pressures obtained tsoummers 03:22 PM Catheter removed tsoummers 03:22 PM Inflation device was opened. tsoummers 03:23 PM 6Fr EBU 3.0 Medtronic guide catheter was used to cannulate the PCI vessel successfully. reused? No tsoummers 03:26 PM Time: 15:11LOC: 4 = Oriented but drowsy tsoummers 03:26 PM Time: 15:11 Patient comfortable and pain free: Yes tsoummers 03:26 PM HR=55 bpm, RCVR=670/69 mmhg, SpO2=92.0 %, Resp=9 B/min, EtCO2=39 mmHg, Comment=SB 03:26 PM .014 [place] 190cm guide wire across target lesion- successful. reused? No tsoummers 03:27 PM Recorded Pressure: Ao, HR=56, Condition=Condition 1 (Aorta) Ao 116/77/94 03:28 PM 2.25 mm x 15mm NC Trek Rx balloon across target lesion- successful. reused? No tsoummers 03:28 PM At 15:28 the ACT was 212 seconds. tsoummers 03:28 PM Balloon inflated @ 14 shae for 14 seconds tsoummers 03:29 PM Balloon inflated @ 14 shae for 16 seconds tsoummers 03:29 PM Time: 15:29 Heparin 2000 units Intravenous Given by Mary Carroll RN tsoummers 03:30 PM Balloon catheter removed intact. tsoummers 03:30 PM Recorded Pressure: Ao, HR=56, Condition=Condition 1 (Aorta) Ao 120/78/97 03:31 PM HR=55 bpm, LSBL=895/58 mmhg, SpO2=92.0 %, Resp=8 B/min, EtCO2=36 mmHg, Comment=SB 03:34 PM .014 PT Graphix 182cm guide wire across target lesion- successful. reused? No tsoummers 03:35 PM 2.5mm x 24mm Synergy drug-eluting stent across target lesion- successful Lot #[id number] tsoummers 03:36 PM Stent removed intact. tsoummers 03:36 PM HR=56 bpm, HXQV=892/70 mmhg, SpO2=94.0 %, Resp=9 B/min, EtCO2=19 mmHg, Comment=SB 03:36 PM 2.25 x 15 mm NC trek reinserted tsoummers 03:37 PM Balloon inflated @ 18 shae for 17 seconds tsoummers 03:38 PM Balloon inflated @ 18 shae for 23 seconds tsoummers 03:38 PM Balloon catheter removed intact. tsoummers 03:39 PM 2.5 mm x 24 mm Synergy stent reinserted tsoummers 03:41 PM Time: 15:40 Nitroglycerin 200 mcg Intracoronary Given by Checo Martinez MD [email or web address] 03:41 PM Time: 15:26 Patient comfortable and pain free: Yes tsoummers 03:41 PM HR=57 bpm, YAXS=888/64 mmhg, SpO2=95.0 %, Resp=14 B/min, EtCO2=29 mmHg, Comment=SB 03:41 PM Time: 15:26LOC: 5 = Fully awake and oriented or at pre-proc level tsoummers 03:41 PM Stent removed intact. not deployed tsoummers 03:42 PM PT graphix Wire repositioned to LAD tsoummers 03:43 PM 2.25 x 15 mm NC trek reinserted tsoummers 03:44 PM Lesion found in Mid LAD . Pre Stenosis: 80 Pre IRENE Flow: 3: Complete and Brisk Flow/Perfusion tsoummers 03:45 PM Balloon inflated @ 20 shae for 33 seconds tsoummers 03:45 PM Mid/Distal Left Anterior Descending Coronary Artery and diagonal branches with 80% stenosis. If graft is supplying this area, 0 % stenosis tsoummers 03:46 PM Balloon catheter removed intact. tsoummers 03:46 PM HR=57 bpm, ZTQS=583/69 mmhg, SpO2=92.0 %, Resp=11 B/min, EtCO2=22 mmHg, Comment=SB 03:46 PM 2.5 mm x 15mm NC Emerge balloon across target lesion- successful. reused? No tsoummers 03:47 PM Balloon inflated @ 20 shae for 22 seconds tsoummers 03:48 PM Balloon inflated @ 20 shae for 14 seconds tsoummers 03:48 PM Guide wire removed intact. tsoummers 03:48 PM Balloon catheter removed intact. tsoummers 03:49 PM Recorded Pressure: Ao, HR=56, Condition=Condition 1 (Aorta) Ao 120/79/97 03:50 PM Guide catheter removed intact. tsoummers 03:50 PM Procedure completed at 15:50 02/16/2018 tsoummers 03:50 PM Did you address IRENE flow and Dominance? Yes tsoummers 03:51 PM Sign out completed: Radiation Dose 741.31 mGy, 4378.53 cGy/cm2 Fluoro Time: 11.1 Isovue 370 - 200ml contrast 125 ml given by Checo Martinez MD, FACC. Complications: NoneCardiac Rehab Consult needed: YesConfirmed administered medications: Yes oummers 03:51 PM HR=58 bpm, WAFZ=419/70 mmhg, SpO2=93.0 %, Resp=14 B/min, Comment=SB 03:51 PM Isovue 370 - 200ml,2 Bottle(s) used. tsoummers 03:52 PM Arterial sheath pulled, Vasc Band closure device used and was Successful S/N. tsoumm 03:52 PM 13 ml air in Vasc Band. tsoummers 03:53 PM Estimated Blood Loss: less than 20cc tsoummers 03:53 PM Post ECG Sinus Bradycardia tsoummers 03:53 PM Post Blood Pressure 111/70 tsoummers 03:53 PM 15:53 Post Pulses Rt Radial 1 tsoumm 03:53 PM Information taught Cardiac Cath, PCI, and Vasc Band tsoumm 03:53 PM Education needs Plan of Care, Procedure, and Responsibilities of Patient in Care tsoumm 03:53 PM Learning barriers :None mm 03:53 PM Education Methods Verbal oumm 03:53 PM Education evaluation Able to repeat information tsoumm 03:53 PM Site status No bleeding/hematoma - Rt Wrist as reported by Lucie Jackson RT (R) at 15:53 oummers 03:53 PM Plavix, Effient or Brilinta given Yes oummers 03:54 PM Delay to floor No tsoummers 03:54 PM Family placed in consult room. tsoummers 03:54 PM Complications: None oummers 03:54 PM Time: 15:54 Plavix 75 mg Orally Given by Mary Carroll RN oumm 03:56 PM Time: 15:41LOC: 4 = Oriented but drowsy tsoummers 03:56 PM Time: 15:41 Patient comfortable and pain free: Yes oummers 03:56 PM Report given to Mary SANCHEZ Pt taken to 3B Room #47. 15:56 tsoummers 03:57 PM [facility] of room: [facility] Com[facility] Complication None Hemodynamics Pressures Site Systolic/A Wave Diastolic/V Wave Mean AO 93 72 83 AO 99 73 85 LV 110 11 17 LV 108 13 16 AO 105 44 77 AO 116 77 94 AO 120 78 97 AO 120 79 97 Post Procedure Information Blood Pressure: 111/70 mmHg Rhythm: Sinus Bradycardia Post procedural instructions were given Closure Device Time Device Success/Fail 02/16/2018 3:52:00 PM Mechanical Compression Successful Site Checks Time Location Status Staff Sheath In? Note 03:53 PM Rt Wrist No bleeding/hematoma Lucie Jackson RT (R) Pulses Time Site Pre-Procedure Post-Procedure Note 02/16/2018 2:30:00 PM Bilateral DP 2+ 02/16/2018 2:30:00 PM Bilateral radial 2+ 3:53:00 PM Rt Radial 1 Updated by Lindsay Salinas RN on 02/16/2018 3:58:52 PM electronically signed on 02/16/2018 3:59:11 PM with status of Final
[2018-02-16] MEDS ORDERED: Latanoprost 2.5 ML BOTTLE LEFT EYE SCH (21:00)
[2018-02-16] MEDS: Acetaminophen 325 MG TABLET PO PRN (21:03)
[2018-02-16] MEDS ORDERED: Insulin LISPRO 300 UNITS/3 ML VIAL SQ SCH (23:15)
[2018-02-17] MEDS: Acetaminophen 325 MG TABLET PO PRN (06:43)
[2018-02-17] MEDS: Finasteride 5 MG TABLET PO SCH (09:08)
[2018-02-17] MEDS: Aspirin 81 MG TAB.CHEW PO SCH (09:08)
[2018-02-17] MEDS: Insulin LISPRO 300 UNITS/3 ML VIAL SQ SCH (09:10)
--- NOTE | 2018-02-17 10:13 | Cardiology Progress Note ---
Date of Encounter: 02/17/18 Time of Encounter: 10:04 Assessment and Plan (1) Angina of effort Current Visit: Yes Status: Acute Presented with exertional chest pain over the past week, midsternal with radiation to left shoulder/neck associated with dyspnea. Relieved with rest. Similar to his prior anginal equivalent--CAD s/p 4 stents, most recent PCI 2009 per pt. Reports negative stress test at [place] in October. Troponins negative. EKG no acute changes. Given his anginal symptoms and recent negative stress test, recommended LHC. LHC yesterday pt received PTCA to OM and LAD. Right radial access site healing well. No bleeding, hematoma or ecchymosis noted. Recommend pt continue DAPT (ASA and Plavix). Continue Statin. Pt refuses Coreg, states significant fatigue. Discussed trying a different BB and pt declines. TTE pending. Cardiology signing off. Reconsult PRN. Will coordinate outpt follow-up in 3-4 weeks. (2) CAD (coronary artery disease) Current Visit: Yes Status: Chronic As above hx PCI and had PTCA yesterday to OM and LAD. ASA, Plavix, Statin. No BB due to intolerance. Qualifiers: Coronary Disease-Associated Artery/Lesion type: [place] artery [place] vs. transplanted heart: [place] heart Associated angina: with stable angina Qualified Code(s): I25.118 - Atherosclerotic heart disease of [place] coronary artery with other forms of angina pectoris Discussion w patient/family: The assessment and plan as outlined above was discussed with the patient and/or family members who expressed understanding and agreement. All questions were answered. Thank you for involving us in the care of your patient. Please call with any questions. I will discuss all the above with Dr. Alatorre and make changes as necessary. Subjective Principal diagnosis: Unstable angina, CAD s/p PTCA Interval history: LHC yesterday, successful PTCA to OM and LAD. Currently denies chest pain or dyspnea. TTE pending. Objective Vital Signs, Last 4 Hours Temp Pulse Resp BP Pulse Ox 02/17/18 06:44 97.8 F 70 16 109/72 93 Vital Signs Temp Pulse Resp BP Pulse Ox 02/17/18 06:44 97.8 F 70 16 109/72 93 02/17/18 02:58 97.7 F 61 14 121/75 94 02/16/18 22:44 98.1 F 64 15 118/72 94 02/16/18 19:11 98.6 F 65 16 114/71 98 02/16/18 17:45 64 16 119/75 96 02/16/18 17:30 62 16 118/75 95 02/16/18 17:15 71 16 118/66 95 02/16/18 17:00 65 16 106/72 95 02/16/18 11:24 97.9 F 68 16 129/86 97 Intake and Output 02/16/18 02/17/18 02/17/18 23:59 07:59 15:59 Intake Total 420 / 420 Output Total 0 / 0 Balance 420 / 420 Intake: Oral 420 / 420 Output: Urine 0 / 0 Other: Weight 84.6 kg Blood Glucose* 230 169 Patient Weight 02/17/18 23:59 Weight 84.6 kg General: Conversant, No Apparent Distress HEENT: Atraumatic, Normocephaly, Mucus Membranes Moist Neck: No JVD, Normal carotid pulses Cardiac: Reg Rate and Rhythm, Normal S1 and S2, No Murmur Lungs: Normal Breath Sounds, No Wheeze, Rales, Rhonchi Neuro: Alert and responsive, No focal deficits noted Abdomen: Soft, Non-Tender Skin: Other (right radial access site healing well. No bleeding, hematoma or ecchymosis noted.) Musculoskeletal: No Chest Wall Tenderness Extremities: No Clubbing, No Cyanosis, No Edema, Normal Pulses Results 02/16/18 10:31 02/15/18 22:13 Lab Results 02/16/18 02/16/18 02/16/18 10:31 10:31 10:31 WBC 7.9 Hgb 15.3 Hct 44.3 Plt Count 176 INR 1.0 Troponin I < 0.03 - Imaging and Cardiology Echo: pending Cardiac cath: report reviewed - EKG Interpretation EKG results cardiology: other (12 hr tele AVG HR 67, SR, no significant pauses or arrhythmias) Consult Discharge Plan - Plan Additional Instructions: RISK FACTORS: STOP SMOKING: If you smoke, STOP. Smoking or tobacco use significantly increases your risk of heart disease because nicotine causes the arteries to narrow or constrict. It also causes fats to stick to the artery. Your chances of having a heart attack are greatly increased if you continue to smoke. For more information, call the education line for smoking cessation 0-868-PDDZTUQ EAT A LOW FAT/CHOLESTEROL/SODIUM DIET: This diet may help reduce your chances of having a heart attack. LIFTING: With affected extremity: Avoid bending, pushing off and lifting more than 2 pounds for 24 hours The following 48 hours, avoid lifting anything more than 5 pounds Avoid strenuous activity or repetitive motions ACTIVITY: You may walk or climb stairs as tolerated You can resume sexual activity as tolerated In general, you are encouraged to engage in a minimum of 30 minutes or more of moderate intensity physical activity, such as brisk walking, daily or at least 3 -4 times weekly BATHING Do not submerge the site into water (bath tub, hot tub, swimming pool, dishes) for 1 week. This can be a source for infection into the blood stream. You may shower after 24 hours SITE CARE: After 24 hours, you may remove the dressing and leave the site open to air. Keep the site clean and dry. Clean gently and pat dry. You can expect bruising and tenderness that gradually resolve within a week or two. Return to work as instructed per your physician Resume driving as instructed per physician Keep all scheduled follow up appointments Resume medications as instructed IMPORTANT: If prescribed a Platelet Aggregation Inhibitor such as, Plavix, Brilinta or Effient: Duration of therapy is minimum one year These medications are often used in combination with Aspirin in prevention of future heart attacks Never discontinue unless consult with your [employer] STROKE (CVA) Risk factors for a stroke are: Age, cigarette smoking, diabetes, excessive alcohol consumption, family history, high blood pressure, overweight, physical inactivity, prior stroke, heart attack, diagnosis of carotid artery stenosis or other artery disease. Warning signs: Sudden numbness or weakness of the face, arm or leg; especially on one side of the body, sudden confusion, trouble speaking or understanding, sudden trouble seeing in one or both eyes, sudden trouble walking, dizziness, loss of balance or coordination, sudden severe headache with no cause. Call 911 or go to the Emergency Room. CONGESTIVE HEART FAILURE: If you have been diagnosed with Congestive Heart Failure (CHF) and your symptoms return, make an appointment with your physician Weigh yourself daily. Notify your physician if you have a weight gain of two or more pounds in one day or five or more pounds in one week. If you experience any difficulty breathing, please call 911 BLEEDING: Although the risk of bleeding is minimal, it can happen. If you have any bleeding from the site, apply firm pressure above the puncture site for 10-15 minutes. If the bleeding does not stop, continue manual pressure and call 911 Contact [facility] ( ) if: You develop a fever greater than 101 degrees Fahrenheit Your site becomes reddened or has any drainage You have an increase in pain or burning at the site or if a large knot forms at the site. If you experience chest pain, shortness of breath, dizziness, or extreme tiredness, stop the activity and rest. Please notify [facility] office if you experience any of these symptoms and they are not relieved by rest please call 911! Referrals: [facility]P [Primary Care Provider[facility] -
--- NOTE | 2018-02-17 10:54 | Discharge Summary ---
- NOTES TO OUTPATIENT PROVIDER Notes to Outpatient Provider: Underwent left cardiac cath- eceived PTCA to OM and LAD cont with DAPT continue statin refuses BB follow up with cardiology 3-4 weeks Date of Encounter: 02/17/18 Time of Encounter: 10:51 - Discharge Diagnosis (1) Chest pain Priority: Primary Status: Suspected Qualifiers: Chest pain type: chest pain due to myocardial ischemia Ischemic chest pain type: stable angina pectoris Qualified Code(s): I20.8 - Other forms of angina pectoris (3) CAD (coronary artery disease) Priority: Secondary Status: Chronic Qualifiers: Coronary Disease-Associated Artery/Lesion type: [place] artery [place] vs. transplanted heart: [place] heart Associated angina: with stable angina Qualified Code(s): I25.118 - Atherosclerotic heart disease of [place] coronary artery with other forms of angina pectoris (4) Diabetes mellitus Priority: Secondary Status: Acute Qualifiers: Diabetes mellitus type: type 2 Diabetes mellitus [place] insulin use: without long-term use Diabetes mellitus complication status: without complication Qualified Code(s): E11.9 - Type 2 diabetes mellitus without complications Hospital course: Mr. Gardner is a 67 year old male Pst medical hx of CAD s/p PCI 4 stents, 2CVA DM . Presneted to [place] [facility] with complaints of intermitten chest pain for approx one week when attempting to walk up an incline. CP was worse on exertion and relieved with rest. with associated sx of dyspnea and radiation to left shoulder /neck. He had PCI in 2009 4 stents, Troponin negative cardiology consulted Patient was placed on heparin gtt echo ordered. He underwent LHC received PTCA to OM and LAD. Cardiology recommending cont ASA PLavix statin Patient refusing BB. He did have a headache this am however this resolved after tylenol. He will follow up with cardiology in 3-4 weeks. Right radial site healing well. No bleeding or hematoma. I answered the patien's questions and advised him to cont wth DAPT tx . I gave him a prescription fo nitroglycerine as well as baby ASA. He is hemodynamically stable and ready for discharge - Time Spent with Patient Total time spent providing and/or coordinating discharge services: - Discharge Medications Prescriptions: Nitroglycerin 0.4 mg SL Q5MIN PRN #30 tab.subl PRN Reason: Chest Pain Aspirin 81 mg PO DAILY #30 tab.chew Home Medications: Atorvastatin [Lipitor] 40 mg PO HS 02/16/18 [History] Carvedilol 3.125 mg PO BID 02/16/18 [History] Cetirizine HCl [Zyrtec] 10 mg PO DAILY 02/16/18 [History] Clopidogrel Bisulfate [Plavix] 75 tab PO DAILY 02/16/18 [History] Diclofenac Sodium [Voltaren] 2 gm TP TID PRN 02/16/18 [History] Finasteride [Proscar] 5 mg PO DAILY 02/16/18 [History] Insulin Glargine [Lantus] 25 unit SQ DAILY 02/16/18 [History] Latanoprost [Xalatan] 1 drop LEFT EYE HS 02/16/18 [History] Lisinopril-HCTZ 10-12.5 [Prinzide 10-12.5] 1 each PO DAILY 02/16/18 [History] Pantoprazole Sodium [Protonix] 40 mg PO DAILY 02/16/18 [History] Tamsulosin HCl [Flomax] 0.4 mg PO HS 02/16/18 [History] Timolol Maleate 0.5% 1 drop LEFT EYE DAILY 02/16/18 [History] Zolpidem [Ambien] 10 mg PO HS 02/16/18 [History] glipiZIDE [Glipizide] 10 mg PO BID 02/16/18 [History] Aspirin 81 mg PO DAILY #30 tab.chew 02/17/18 [Rx] Nitroglycerin 0.4 mg SL Q5MIN PRN #30 tab.subl 02/17/18 [Rx] Allergies/Adverse Reactions: 3 Allergy/AdvReac Type Severity Reaction Status Date / Time carvedilol AdvReac Fatigued Verified 02/16/18 17:50 Date of admission: 02/16/18 00:56 [facility] care physician: [facility] Consults: 02/16/18 10:23 Consult to Cardiology [CONS] Routine Comment: Consulting Provider: [facility] [place] Reason for Consult: CP Time Notified: 10:24 Call Completed: Yes 02/17/18 10:22 Consult to Cardiac Rehabilitation-Phase1 [CONS] Routine Comment: Reason for Consult: CAD s/p PTCA Call Completed: No Discharging clinician: Afshan Silva Anticipated date of discharge: 08/14/18 - Constitutional Vitals: Temp Pulse Resp BP Pulse Ox 97.8 F 70 16 109/72 93 02/17/18 06:44 02/17/18 06:44 02/17/18 06:44 02/17/18 06:44 02/17/18 06:44 General appearance: Present: A&O X 3 - Head Head exam: Present: atraumatic, normocephalic - Eye Eye exam: Present: PERRL, conjuntiva pink, sclera anicteric - Neck Neck exam general surgery: Present: supple, trachea midline. Absent: lymphadenopathy - Respiratory Respiratory exam: Present: CTAB. Absent: accessory muscle use, rales, rhonchi, wheezes - Cardiovascular Cardiovascular exam: Present: RRR, +S1, +S2. Absent: diastolic murmur, gallop, rubs, systolic murmur - GI/Abdominal GI/Abdominal exam: Present: normal bowel sounds, soft, no peritoneal signs. Absent: distended, tenderness - Extremities Exam Extremities exam: Present: warm, radial pulses palpable and symmetrical. Absent : calf tenderness, cyanotic, pedal edema - Neurological Exam Neurological exam: Present: CN II-XII intact, oriented X3, no focal deficits. Absent: pronater drift, facial droop, speech deficit - Skin Skin exam: Present: dry, intact - Patient Status Disposition: Home, Self-Care Condition: Fair - Discharge Instructions Instructions: Nitroglycerin (By mouth), Aspirin (By mouth), Chest Pain (DC), Diabetes Mellitus Type 2 in Adults (DC) Follow Up With: Checo Martinez MD [Partnered Physician] - MS,PCP [Primary Care Provider] - 03/04/18 9:45 am Additional Instructions: RISK FACTORS: STOP SMOKING: If you smoke, STOP. Smoking or tobacco use significantly increases your risk of heart disease because nicotine causes the arteries to narrow or constrict. It also causes fats to stick to the artery. Your chances of having a heart attack are greatly increased if you continue to smoke. For more information, call the education line for smoking cessation 3-881-FWBVLSK EAT A LOW FAT/CHOLESTEROL/SODIUM DIET: This diet may help reduce your chances of having a heart attack. LIFTING: With affected extremity: Avoid bending, pushing off and lifting more than 2 pounds for 24 hours The following 48 hours, avoid lifting anything more than 5 pounds Avoid strenuous activity or repetitive motions ACTIVITY: You may walk or climb stairs as tolerated You can resume sexual activity as tolerated In general, you are encouraged to engage in a minimum of 30 minutes or more of moderate intensity physical activity, such as brisk walking, daily or at least 3 -4 times weekly BATHING Do not submerge the site into water (bath tub, hot tub, swimming pool, dishes) for 1 week. This can be a source for infection into the blood stream. You may shower after 24 hours SITE CARE: After 24 hours, you may remove the dressing and leave the site open to air. Keep the site clean and dry. Clean gently and pat dry. You can expect bruising and tenderness that gradually resolve within a week or two. Return to work as instructed per your physician Resume driving as instructed per physician Keep all scheduled follow up appointments Resume medications as instructed IMPORTANT: If prescribed a Platelet Aggregation Inhibitor such as, Plavix, Brilinta or Effient: Duration of therapy is minimum one year These medications are often used in combination with Aspirin in prevention of future heart attacks Never discontinue unless consult with your [employer] STROKE (CVA) Risk factors for a stroke are: Age, cigarette smoking, diabetes, excessive alcohol consumption, family history, high blood pressure, overweight, physical inactivity, prior stroke, heart attack, diagnosis of carotid artery stenosis or other artery disease. Warning signs: Sudden numbness or weakness of the face, arm or leg; especially on one side of the body, sudden confusion, trouble speaking or understanding, sudden trouble seeing in one or both eyes, sudden trouble walking, dizziness, loss of balance or coordination, sudden severe headache with no cause. Call 911 or go to the Emergency Room. CONGESTIVE HEART FAILURE: If you have been diagnosed with Congestive Heart Failure (CHF) and your symptoms return, make an appointment with your physician Weigh yourself daily. Notify your physician if you have a weight gain of two or more pounds in one day or five or more pounds in one week. If you experience any difficulty breathing, please call 911 BLEEDING: Although the risk of bleeding is minimal, it can happen. If you have any bleeding from the site, apply firm pressure above the puncture site for 10-15 minutes. If the bleeding does not stop, continue manual pressure and call 911 Contact [facility] ( ) if: You develop a fever greater than 101 degrees Fahrenheit Your site becomes reddened or has any drainage You have an increase in pain or burning at the site or if a large knot forms at the site. If you experience chest pain, shortness of breath, dizziness, or extreme tiredness, stop the activity and rest. Please notify [facility] office if you experience any of these symptoms and they are not relieved by rest please call 911! - Diet and Activity Activity: increase activity as tolerated Diet: low fat, low cholesterol
[2018-02-17 11:28] VITALS: BP 131/73
--- NOTE | 2018-02-17 13:27 | Invasive Diagnostic Lab Proc ---
Name: Link Gardner Date of Study: 02/16/2018 Date: 1950 Ht: 68.1in Medical Record#: [id number] Age: 67 Wt: 187.39lb Gender: Male BSA: 1.99 Order #: [id number] BMI: 28.4 Physicians Procedure Physician: Checo Martinez MD, FACC Referring MD: Referring MD: Staff Name Position Time In CollinLindsay alston RN Monitor 03:03 PM Mary Carroll RN Product Picker 03:03 PM Lucie Jackson RT (R) Scrub 03:03 PM Indications Indication Unstable Angina Procedures Performed Procedure L HRT ARTERY/VENTRICLE ANGIO PRQ CARDIAC ANGIOPLAST 1 ART PRQ CARDIAC ANGIOPLAST 1 ART MOD SED OTH PHYS/QHP 5/>YRS MOD SED OTHER PHYS/QHP EA MOD SED OTHER PHYS/QHP EA Pre-Procedure Checklist Informed consent is complete signed and on chart. H&P is on chart. ID band is on and ID verified with patient. Patient NPO for procedure The procedure was described for the patient and questions were answered. Blood Pressure: 116/69 ECG is on chart. Rhythm: Sinus Bradycardia Plan of Care Patient will tolerate the procedure without complications. Adequate level of comfort will be maintained. Hemodynamics will remain stable Patient will recover from procedure without complications. Respiratory function will be maintained. Cardiac rhythm will remain stable. Patient temperature will be maintained. Patient and/or family have verbalized understanding of the procedure. Patient Education Chief Complaint/Reason for Test: Cardiac Cath Developmental Category: Adult (18-64 years) Developmentally Appropriate for Age: Yes Learning Barriers: None Education Needs: Procedure Education Method: Verbal Information Taught: Cardiac Cath Educational Evaluation: Able to repeat information Intravenous Access Time IV Size Location DC'd Fluid/Drip Rate Units RN 02:32 PM 20g 1 07/10" Patent On Arrival Rt Antecubital Allergies No Known Allergies carvedilol Vital Signs Time BP (mmHg) HR (bpm) O2 Sat. RR (bpm) LOC 03:11 PM / % 5 = Fully awake and oriented or at pre-proc level 03:11 PM / % 4 = Oriented but drowsy 03:26 PM / % 5 = Fully awake and oriented or at pre-proc level 03:46 PM 116 / 69 57 92 % 11 03:51 PM 111 / 70 58 93 % 14 03:06 PM 131 / 86 61 99 % 14 03:11 PM 128 / 83 65 99 % 27 03:16 PM 105 / 68 62 94 % 13 03:21 PM 112 / 70 55 90 % 9 03:26 PM 114 / 69 55 92 % 9 03:31 PM 118 / 58 55 92 % 8 03:36 PM 113 / 70 56 94 % 9 03:41 PM 107 / 64 57 95 % 14 03:41 PM / % 4 = Oriented but drowsy Procedural Medications Time Medication Dose Units Method Given By 03:07 PM 0.9NaCl 25 ml/hr Intravenous Mary Carroll RN 03:08 PM Oxygen 2 L/min nasal cannula Mary Carroll RN 03:11 PM Versed 2 mg Intravenous Mary Carroll RN 03:11 PM Fentanyl 50 mcg Intravenous Mary Carroll RN 03:13 PM Lidocaine 2% 0.5 ml Subcutaneous Checo Martinez MD, FACC 03:13 PM Versed 1 mg Intravenous Mary Carroll RN 03:13 PM Fentanyl 25 mcg Intravenous Mary Carroll RN 03:15 PM Heparin 4000 units Nitroglycerin 200 mcg Verapamil 2.5 mg Intraarterial Checo Martinez MD, FACC 03:19 PM Oxygen 4 L/min nasal cannula Mray Carroll RN 03:29 PM Heparin 2000 units Intravenous Mary Carroll RN 03:40 PM Nitroglycerin 200 mcg Intracoronary Checo Martinez MD 03:54 PM Plavix 75 mg Orally Mary Carroll RN ASA Classification: CLASS II- Mild systemic disease (i.e. well-controlled diabetes, hypertension, asthma, cigarette smoking) Yasmeen Score Preprocedure Postprocedure Activity 2- Moves 4 extremities sustained head lift Activity 2- Moves 4 extremities sustained head lift Circulation 2- SBP +/= 20 points of pre-anesthetic level Circulation 2- SBP +/= 20 points of pre-anesthetic level Consciousness 2- Awake and alert oriented x 3 Consciousness 2- Awake and alert oriented x 3 O2 Saturation 2- Able to maintain O2 satruation of 92% on room air O2 Saturation 2- Able to maintain O2 satruation of 92% on room air Respiratory 2- Able to deep breathe and cough well Respiratory 2- Able to deep breathe and cough well Total Score 10 Total Score 10 Contrast Agent: Isovue Diagnostic Contrast: 125 ml Total Contrast: 125 ml Fluoro Dose: 4379 mGy Activated Clotting Time Time Seconds to Clot 03:28 PM 212 Procedure Log Time Note Enter By 03:02 PM Pt arrived to [facility] 2 at 15:02 [facility] 03:03 PM Lindsay Salinas RN Position: Monitor Time in: 15: 03:03 PM Mary Carroll RN Position: Product Picker Time in: 15:mm 03:04 PM Lucie Jackson RT (R) Position: Scrub Time in: 15:mm 03:04 PM Case Delayed No oumm 03:04 PM Physician arrived 15: 03:04 PM Meet and greet completed 03:04 PM Sign in performed according to hospital policy. mm 03:05 PM CathStat 03:05 PM Case Start 03:05 PM Vitals capture started with the following parameters, Patient=Adult, Interval=5 min, Initial Uwezoane=023 mmHg, Deflation Rate=5 mmHg, Cuff placed on Right Arm 03:05 PM Hair removed from procedure site in procedure lab using clippers. Right wrist prepped with Chloraprep by Sue Diaz (R), then patient was draped. Skin intact. [facility] 03:06 PM HR=61 bpm, ULPX=162/86 mmhg, SpO2=99.0 %, Resp=14 B/min, Comment=NSR 03:06 PM Hair removed from procedure site in holding area using clippers. Right groin prepped with Chloraprep by Sue Diaz (R), then patient was draped. Skin intact. [facility] 03:07 PM ASA Class CLASS II- Mild systemic disease (i.e. well-controlled diabetes, hypertension, asthma, cigarette smoking) mm 03:07 PM Procedure start 15:07 oumm 03:07 PM Time: 15:07 0.9NaCl 25 ml/hr Intravenous Given by Mary Carroll RN mando 03:08 PM Patient charges- Angio tray pack, Navilyst 3mm J, Pulse Oximetry and ACIST tubing and transducer alecia 03:08 PM Time: 15:08 Oxygen on at 2 L/min per nasal cannula by Mary Carroll RN 03:11 PM Time: 15:11 Patient comfortable and pain free: Yes oummalecia 03:11 PM Time: 15:11LOC: 5 = Fully awake and oriented or at pre-proc level mmlaecia 03:11 PM Time: 15:11 Versed 2 mg Intravenous Given by Mary Carroll RN mando 03:11 PM HR=65 bpm, MQQI=267/83 mmhg, SpO2=99.0 %, Resp=27 B/min, EtCO2=36 mmHg, Comment=NSR 03:11 PM Time: 15:11 Fentanyl 50 mcg Intravenous Given by Mary Carroll RN 03:12 PM Clinical Presentation: Unstable angina oummalecia 03:12 PM Pressure channel 1 zeroed. 03:13 PM Time out performed according to hospital policy alecia 03:13 PM Time: 15:13 0.5 ml Lidocaine 2% to right radial Subcutaneous Given by Checo Martinez MD, [facility] 03[facility] PM Time: 15:13 Versed 1 mg Intravenous Given by Mary Carroll RN mando 03:13 PM Time: 15:13 Fentanyl 25 mcg Intravenous Given by Mary Carroll RN 03:14 PM Recorded ECG: HR=59 Condition=Condition 1 03:15 PM Access obtained by percutaneous puncture. 6Fr 10cm Terumo Glidesheath sheath placed in right radial artery. [id number] 03:15 PM Time: 15:15 Patient given 4,000 units Heparin, 200 mcg Nitroglycerin, and 2.5 mg Verapamil Intraarterial by Checo Martinez MD, [facility]. This is given to reduce risk of vessel spasm and thrombosis. mm 03:15 PM 0.035 260cm Navilyst 3mmJ wire [id number] oumm 03:15 PM 5Fr TIG catheter inserted over the wire C mm 03:15 PM wire removed mmalecia 03:16 PM HR=62 bpm, AFDL=138/68 mmhg, SpO2=94.0 %, Resp=13 B/min, Comment=NSR 03:16 PM 0.035 150cm VSI Musa-Torque wire [id number] oumm 03:17 PM wire removed mmalecia 03:17 PM Recorded Pressure: Ao, HR=63, Condition=Condition 1 (Aorta) Ao 93/72/83 03:18 PM LCA angiography performed in multiple views. tsoummers 03:18 PM Lesion found in 1st Marginal. Pre Stenosis: 90 Pre IRENE Flow: 3: Complete and Brisk Flow/Perfusion tsoummers 03:18 PM RCA angiography performed in multiple views. tsoummers 03:19 PM Recorded Pressure: Ao, HR=60, Condition=Condition 1 (Aorta) Ao 99/73/85 03:19 PM Time: 15:19 Oxygen on at 4 L/min per nasal cannula by Mary Carroll RN tsoummers 03:19 PM Coronary Dominance: Left tsoummers 03:20 PM Lesion found in Proximal RCA. Pre Stenosis: 95 Pre IRENE Flow: tsoummers 03:20 PM Right Coronary, Right Posterior Descending Arteries with Right Posterolateral and Acute Marginal branches with 95 % stenosis. If graft is supplying this area, 0 % stenosis tsoummers 03:20 PM Catheter removed tsoummers 03:20 PM 5Fr Pigtail catheter inserted over the wire DNC tsoummers 03:20 PM Circumflex, Obtuse Marginal, Left Posterior Descending, and Left Posterolateral Coronary Arteries with 90 % stenosis. If graft is supplying this area, 0 % stenosis tsoummers 03:20 PM Catheter selectively placed in left ventricle tsoummers 03:21 PM Lesion found in Proximal LAD. Pre Stenosis: 50 Pre IRENE Flow: tsoummers 03:21 PM Proximal Left Anterior Descending Coronary Artery with 50% stenosis. If graft is supplying this territory, 0 % stenosis. tsoummers 03:21 PM HR=55 bpm, BHNT=367/70 mmhg, SpO2=90.0 %, Resp=9 B/min, Comment=SB 03:21 PM Pressure channel 1 zeroed. 03:21 PM Recorded Pressure: LV, HR=57, Condition=Condition 1 (Left Ventricle) LV 110/11/17 03:22 PM Recorded Pressure: LV, Ao, HR=64, Condition=Condition 1 (Left Ventricle) LV 108/13/16, (Aorta) Ao 105/44/77 03:22 PM no injection, pressures obtained tsoummers 03:22 PM Catheter removed tsoummers 03:22 PM Inflation device was opened. tsoummers 03:23 PM 6Fr EBU 3.0 Medtronic guide catheter was used to cannulate the PCI vessel successfully. reused? No tsoummers 03:26 PM Time: 15:11LOC: 4 = Oriented but drowsy tsoummers 03:26 PM Time: 15:11 Patient comfortable and pain free: Yes tsoummers 03:26 PM HR=55 bpm, JQTP=429/69 mmhg, SpO2=92.0 %, Resp=9 B/min, EtCO2=39 mmHg, Comment=SB 03:26 PM .014 [place] 190cm guide wire across target lesion- successful. reused? No tsoummers 03:27 PM Recorded Pressure: Ao, HR=56, Condition=Condition 1 (Aorta) Ao 116/77/94 03:28 PM 2.25 mm x 15mm NC Trek Rx balloon across target lesion- successful. reused? No tsoummers 03:28 PM At 15:28 the ACT was 212 seconds. tsoummers 03:28 PM Balloon inflated @ 14 shae for 14 seconds tsoummers 03:29 PM Balloon inflated @ 14 shae for 16 seconds tsoummers 03:29 PM Time: 15:29 Heparin 2000 units Intravenous Given by Mary Carroll RN tsoummers 03:30 PM Balloon catheter removed intact. tsoummers 03:30 PM Recorded Pressure: Ao, HR=56, Condition=Condition 1 (Aorta) Ao 120/78/97 03:31 PM HR=55 bpm, GTPI=085/58 mmhg, SpO2=92.0 %, Resp=8 B/min, EtCO2=36 mmHg, Comment=SB 03:34 PM .014 PT Graphix 182cm guide wire across target lesion- successful. reused? No tsoummers 03:35 PM 2.5mm x 24mm Synergy drug-eluting stent across target lesion- successful Lot #[id number] tsoummers 03:36 PM Stent removed intact. tsoummers 03:36 PM HR=56 bpm, ZYFL=313/70 mmhg, SpO2=94.0 %, Resp=9 B/min, EtCO2=19 mmHg, Comment=SB 03:36 PM 2.25 x 15 mm NC trek reinserted tsoummers 03:37 PM Balloon inflated @ 18 shae for 17 seconds tsoummers 03:38 PM Balloon inflated @ 18 shae for 23 seconds tsoummers 03:38 PM Balloon catheter removed intact. tsoummers 03:39 PM 2.5 mm x 24 mm Synergy stent reinserted tsoumm 03:41 PM Time: 15:40 Nitroglycerin 200 mcg Intracoronary Given by Checo Martinez MD tsoumm 03:41 PM Time: 15:26 Patient comfortable and pain free: Yes tsoummers 03:41 PM HR=57 bpm, THIE=966/64 mmhg, SpO2=95.0 %, Resp=14 B/min, EtCO2=29 mmHg, Comment=SB 03:41 PM Time: 15:26LOC: 5 = Fully awake and oriented or at pre-proc level tsoummers 03:41 PM Stent removed intact. not deployed tsoummers 03:42 PM PT graphix Wire repositioned to LAD tsoummers 03:43 PM 2.25 x 15 mm NC trek reinserted tsoummers 03:44 PM Lesion found in Mid LAD . Pre Stenosis: 80 Pre IRENE Flow: 3: Complete and Brisk Flow/Perfusion tsoummers 03:45 PM Balloon inflated @ 20 shae for 33 seconds tsoummers 03:45 PM Mid/Distal Left Anterior Descending Coronary Artery and diagonal branches with 80% stenosis. If graft is supplying this area, 0 % stenosis tsoummers 03:46 PM Balloon catheter removed intact. tsoummers 03:46 PM HR=57 bpm, MWBC=399/69 mmhg, SpO2=92.0 %, Resp=11 B/min, EtCO2=22 mmHg, Comment=SB 03:46 PM 2.5 mm x 15mm NC Emerge balloon across target lesion- successful. reused? No tsoummers 03:47 PM Balloon inflated @ 20 shae for 22 seconds tsoummers 03:48 PM Balloon inflated @ 20 shae for 14 seconds tsoummers 03:48 PM Guide wire removed intact. tsoummers 03:48 PM Balloon catheter removed intact. tsoummers 03:49 PM Recorded Pressure: Ao, HR=56, Condition=Condition 1 (Aorta) Ao 120/79/97 03:50 PM Guide catheter removed intact. tsoummers 03:50 PM Procedure completed at 15:50 02/16/2018 tsoummers 03:50 PM Did you address IRENE flow and Dominance? Yes tsoummers 03:51 PM Sign out completed: Radiation Dose 741.31 mGy, 4378.53 cGy/cm2 Fluoro Time: 11.1 Isovue 370 - 200ml contrast 125 ml given by Checo Martinez MD, [facility]. Complications: NoneCardiac Rehab Consult needed: YesConfirmed administered medications: Yes tsoummers 03:51 PM HR=58 bpm, VPYG=964/70 mmhg, SpO2=93.0 %, Resp=14 B/min, Comment=SB 03:51 PM Isovue 370 - 200ml,2 Bottle(s) used. tsoummers 03:52 PM Arterial sheath pulled, Vasc Band closure device used and was Successful S/N. tsoummers 03:52 PM 13 ml air in Vasc Band. tsoummers 03:53 PM Estimated Blood Loss: less than 20cc tsoummers 03:53 PM Post ECG Sinus Bradycardia tsoummers 03:53 PM Post Blood Pressure 111/70 tsoummers 03:53 PM 15:53 Post Pulses Rt Radial 1 tsoummers 03:53 PM Information taught Cardiac Cath, PCI, and Vasc Band tsoummers 03:53 PM Education needs Plan of Care, Procedure, and Responsibilities of Patient in Care tsoummers 03:53 PM Learning barriers :None tsoummers 03:53 PM Education Methods Verbal tsoummers 03:53 PM Education evaluation Able to repeat information tsoummers 03:53 PM Site status No bleeding/hematoma - Rt Wrist as reported by Lucie Jackson RT (R) at 15:53 tsoummers 03:53 PM Plavix, Effient or Brilinta given Yes tsoummers 03:54 PM Delay to floor No tsoummers 03:54 PM Family placed in consult room. tsoummers 03:54 PM Complications: None tsoummers 03:54 PM Time: 15:54 Plavix 75 mg Orally Given by Mary Carroll RN tsgordymmalecia 03:56 PM Time: 15:41LOC: 4 = Oriented but drowsy tsoummers 03:56 PM Time: 15:41 Patient comfortable and pain free: Yes tsoummers 03:56 PM Report given to Mary SANCHEZ Pt taken to 3B Room #47. 15:56 tsoummalecia 03:57 PM Patient out of room: 15:57 tsmmers Equipment Used Size Length Diameter Item Category ACT Other Angio tray pack Other Terumo Glidesheath sheath Navilyst 3mmJ wire VSI Musa-Torque wire Inflation kit Other Guideliner Guide catheter PT Graphix Guidewire NC Trek Rx Balloon BMW Guidewire Emerge PTCA Dilatation Catheter Monorail Balloon Vasc Band Manual Compression Manual compression Promus Element Plus Rx Drug Eluting Stent Complications Complication None Hemodynamics Pressures Site Systolic/A Wave Diastolic/V Wave Mean AO 93 72 83 AO 99 73 85 LV 110 11 17 LV 108 13 16 AO 105 44 77 AO 116 77 94 AO 120 78 97 AO 120 79 97 Post Procedure Information Blood Pressure: 111/70 mmHg Rhythm: Sinus Bradycardia Post procedural instructions were given Closure Device Time Device Success/Fail 02/16/2018 3:52:00 PM Mechanical Compression Successful Site Checks Time Location Status Staff Sheath In? Note 03:53 PM Rt Wrist No bleeding/hematoma Lucie Jackson RT (R) Pulses Time Site Pre-Procedure Post-Procedure Note 02/16/2018 2:30:00 PM Bilateral DP 2+ 02/16/2018 2:30:00 PM Bilateral radial 2+ 3:53:00 PM Rt Radial 1 Updated by Lindsay Salinas RN on 02/17/2018 1:18:15 PM electronically signed on 02/17/2018 1:18:59 PM with status of Final
--- NOTE | 2018-02-17 17:45 | Electrocardiograph Report ---
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
[2018-02-17] MEDS ORDERED: Insulin LISPRO 300 UNITS/3 ML VIAL SQ SCH (21:00)
== END 2018-02-17 12:06 | disposition home or self-care (01) ==
LOC: 3BNU 21:56 → EMEROOARM 21:56 → 3BNU 02-16 01:41
PROVIDERS: ADMIT Family Medicine; ATTEND Family Medicine